=== PATIENT | male | born 1965 | race Caucasian/White ===

== ENCOUNTER 2019-06-12 11:57 | Emergency (ER) | payer OTHER ==
[~2019-06-12] VITALS: Ht 175.2 cm; Wt 65.8 kg
[~2019-06-12 11:57] MED LIST: NO DAILY MEDS; TRAMADOL HCL50 MG PO; TRIMOX500 MG PO
== END 2019-06-12 14:35 | disposition home or self-care (01) ==
LOC: ED 11:57
DX: S83.207A Unspecified tear of unspecified meniscus, current injury, left knee, initial encounter (principal); X50.1XXA Overexertion from prolonged static or awkward postures, initial encounter; Y93.89 Activity, other specified; Y92.098 Other place in other non-institutional residence as the place of occurrence of the external cause; Y99.8 Other external cause status